=== PATIENT | female | born 1980 | race African-American/Black ===

== ENCOUNTER 2024-05-18 03:38 | Emergency (ER) | payer SELFPAY ==
[2024-05-18] MEDS ORDERED: Dexamethasone 10 MG/ML VIAL ONE (03:46)
[2024-05-18] MEDS ORDERED: Ipratropium/Albuterol 3 ML NEB ONE (04:05)
== END 2024-05-18 04:35 | disposition home or self-care (01) ==
LOC: CSHERS 03:38
DX: J20.9 Acute bronchitis, unspecified (principal); I11.0 Hypertensive heart disease with heart failure; I50.9 Heart failure, unspecified; J44.89 Other specified chronic obstructive pulmonary disease; Z79.51 Long term (current) use of inhaled steroids; Z79.899 Other long term (current) drug therapy
CPT/HCPCS: 71045; 93005; 96374; J1100; J7620

== ENCOUNTER 2024-06-27 21:45 | Emergency (ER) | payer SELFPAY | END 2024-06-28 00:23 | disposition home or self-care (01) | LOC: CSHERS 21:45 | DX: R05.9 Cough, unspecified (principal); R09.81 Nasal congestion; I11.0 Hypertensive heart disease with heart failure; I50.9 Heart failure, unspecified; Z55.0 Illiteracy and low-level literacy | CPT/HCPCS: 71045; 93005 ==